=== PATIENT | male | born 1970 | race African-American/Black ===

== ENCOUNTER 2023-12-01 16:05 | Emergency (ER) | payer MEDICAID ==
[~2023-12-01] VITALS: Ht 172.7 cm; Wt 59.0 kg
[2023-12-01 16:08] VITALS: BP 105/83; PULSE 111; RESP 16; TEMP 98.7; O2SAT 97
== END 2023-12-01 21:11 | disposition left against medical advice (07) ==
LOC: ER 16:05
DX: I74.9 Embolism and thrombosis of unspecified artery (principal); Z76.0 Encounter for issue of repeat prescription; Z91.199 Patient's noncompliance with other medical treatment and regimen due to unspecified reason; Z00.00 Encounter for general adult medical examination without abnormal findings
CPT/HCPCS: 99281